=== PATIENT | male | born 1990 | race Caucasian/White ===

== ENCOUNTER 2017-11-09 20:53 | Emergency (ER) | payer OTHER ==
[~2017-11-09] VITALS: Ht 180.3 cm; Wt 61.0 kg
[2017-11-09 20:54] VITALS: TEMP 36.7; Ht 180.3 cm; Wt 61.0 kg
[2017-11-09] MEDS ORDERED: HYDROmorphone INJ 1 MG/ML SYR IV STA ×2 (21:17→22:17)
[2017-11-09] MEDS ORDERED: ONDANSETRON INJ 2 MG/ML 2 ML VIAL IV STA (21:17)
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
[2017-11-09] MEDS ORDERED: OXYCODONE IR HOME PACK PO ONE (22:30)
[2017-11-09] MEDS ORDERED: OXYC1TAB3 PO (22:54)
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
[2017-11-09 23:11] VITALS: BP 123/76; PULSE 76; O2SAT 98
[2017-11-10] MEDS ORDERED: OXYC1TAB3 PO ×2 (12:05→18:11)
--- NOTE | 2017-11-10 12:22 | Pharmacy Progress Note ---
ED Pharmacist Progress Note Date of Service: November 10, 2017. Received a call from patient's father stating there was an issue with his son's prescription. After confirming with the patient that I could discuss his care with his father (patient over 18), I learned that the [facility] where the prescription was e-scribed did not have oxycodone in stock. I called this pharmacy and confirmed this with them. They stated due to changes in delivery, they had no idea when they would be receiving more of this medication. They also informed me since this was e-scribed, they were legally unable to transfer the script to another pharmacy and the patient would need a new prescription all together. I verbally cancelled this original prescription with the [facility] pharmacist. I then confirmed that [facility] in [place] did have enough of the medication to fill the prescription. Dr. Sandra then resent the prescription for oxycodone 5mg IR to this pharmacy to ensure patient care did not suffer due to a pharmacy stocking issue. The patient's father was informed of this change.
[2017-11-12] MEDS ORDERED: MULT-506 PO (15:24)
[2017-11-12] MEDS ORDERED: PERCOCET PO (15:24)
== END 2017-11-09 23:11 | disposition home or self-care (01) ==
LOC: C.EDB 20:54 → C.EDD 23:11
DX: S82.301A Unspecified fracture of lower end of right tibia, initial encounter for closed fracture (principal); S82.831A Other fracture of upper and lower end of right fibula, initial encounter for closed fracture; W19.XXXA Unspecified fall, initial encounter; Y93.55 Activity, bike riding; Y92.838 Other recreation area as the place of occurrence of the external cause

== ENCOUNTER 2017-11-10 17:46 | Emergency (ER) | payer OTHER ==
[~2017-11-10] VITALS: Ht 177.8 cm; Wt 63.3 kg
[~2017-11-10 17:46] MED LIST: OXYC1TAB3 PO
[2017-11-10 17:52] VITALS: TEMP 36.8; Ht 177.8 cm; Wt 63.3 kg
[2017-11-10] MEDS ORDERED: OXYC1TAB3 PO (18:11)
[2017-11-10] MEDS ORDERED: IBUPROFEN 600 MG TAB PO STA (18:23)
[2017-11-10] MEDS ORDERED: OXYCODONE HCL IR 5 MG TAB (IMMEDIATE RELEASE) PO STA (18:23)
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
[2017-11-10 19:56] VITALS: BP 145/67; PULSE 60; O2SAT 95
[2017-11-12] MEDS ORDERED: MULT-506 PO (15:24)
[2017-11-12] MEDS ORDERED: PERCOCET PO (15:24)
== END 2017-11-10 19:58 | disposition home or self-care (01) ==
LOC: C.EDB 17:47 → C.EDD 19:58
DX: S89.101D Unspecified physeal fracture of lower end of right tibia, subsequent encounter for fracture with routine healing (principal); S89.301D Unspecified physeal fracture of lower end of right fibula, subsequent encounter for fracture with routine healing; V19.9XXD Pedal cyclist (driver) (passenger) injured in unspecified traffic accident, subsequent encounter; Y93.55 Activity, bike riding; Y99.8 Other external cause status; Z98.890 Other specified postprocedural states